=== PATIENT | female | born 1970 | race Caucasian/White ===

== ENCOUNTER 2017-04-18 14:01 | Outpatient (CLI) | payer MEDICARE, MEDICAID ==
[~2017-04-18 14:01] MED LIST: IBUP-24 PO
[2017-04-18 14:08] VITALS: BP 120/75
== END 2017-04-18 14:56 | disposition home or self-care (01) ==
LOC: ORTHO 14:01
PROVIDERS: ATTEND Nurse Practitioner Family
DX: S82.55XD Nondisplaced fracture of medial malleolus of left tibia, subsequent encounter for closed fracture with routine healing (principal); F17.210 Nicotine dependence, cigarettes, uncomplicated; M89.9 Disorder of bone, unspecified; Z88.5 Allergy status to narcotic agent; X58.XXXD Exposure to other specified factors, subsequent encounter
CPT/HCPCS: 73610

== ENCOUNTER → 2018-07-03 | Emergency (ER) | payer MEDICARE, MEDICAID ==
[~2018-07-03] VITALS: Ht 167.6 cm; Wt 78.0 kg
[~2018-07-03] MED LIST changes: +ALBU6.7H INH; +GUAI118S13 PO; +LEVO500T2 PO; +PRED20TA PO; +ipratropium/albuterol 3ml nebule NEB ONE; +levoFLOXACIN 750MG TABLET PO ONE; +methylPREDNISolone sod succ 125mg/2ml vial IV ONE; +normal saline 1000ML IV soln IVB ONE; +predniSONE 20 mg tablet PO STA
[2018-07-03 20:15] VITALS: BP 106/72
--- NOTE | 2018-07-03 23:39 | NUR ---
STARTED THE IV IN HER RIGHT WRIST AND SHE MADE ME TAKE IT OUT BECAUSE IT WAS TOO PAINFUL AND THEN SHE SAID "WHAT THE FUCK ARE YOU DOING TO ME." ' I SAID 'EXCUSE ME?' AND SHE THEN SAID SHE WAS SORRY. SARTHAK OAKES. HE WILL LOOK AT THE XRAY PREDNISONE 40 MG PO HOLD LABS
== END | disposition home or self-care (01) ==
LOC: ER 19:45
DX: J44.1 Chronic obstructive pulmonary disease with (acute) exacerbation (principal); J18.9 Pneumonia, unspecified organism; S60.811A Abrasion of right wrist, initial encounter; G89.29 Other chronic pain; M54.9 Dorsalgia, unspecified; F20.9 Schizophrenia, unspecified; F17.200 Nicotine dependence, unspecified, uncomplicated; Z88.6 Allergy status to analgesic agent; Z86.73 Personal history of transient ischemic attack (TIA), and cerebral infarction without residual deficits; W46.0XXA Contact with hypodermic needle, initial encounter; Y93.89 Activity, other specified; Y92.89 Other specified places as the place of occurrence of the external cause; Y99.8 Other external cause status
CPT/HCPCS: 71045; 94640; 94760; 99283; J7512

== ENCOUNTER 2019-03-28 12:05 | Emergency (ER) | payer MEDICARE, MEDICAID ==
[~2019-03-28] VITALS: Ht 170.2 cm; Wt 66.0 kg
[~2019-03-28 12:05] MED LIST changes: -ALBU6.7H INH; +ALBU6.7H9 INH; -GUAI118S13 PO; -LEVO500T2 PO; -PRED20TA PO; -ipratropium/albuterol 3ml nebule NEB ONE; -levoFLOXACIN 750MG TABLET PO ONE; -methylPREDNISolone sod succ 125mg/2ml vial IV ONE; -normal saline 1000ML IV soln IVB ONE; -predniSONE 20 mg tablet PO STA
[2019-03-28 12:09] VITALS: BP 133/81
[2019-03-28 13:05] LABS: CLARITY,URINE CLOUDY (Clear); COLOR,URINE YELLOW (Yellow); GLUCOSE, URINE NEGATIVE (Neg); KETONES,URINE NEGATIVE (Neg); LEUKOCYTE ESTERASE ,URINE LARGE (Neg); NITRITES, URINE NEGATIVE (Neg); OCCULT BLOOD,URINE TRACE-INTACT (Neg); PH,URINE 6.5 (4.8-8.0); PROTEIN,URINE NEGATIVE (Neg); UROBILINOGEN,URINE >=8.0 E.U/dL (0.2-1.0)
[2019-03-28 13:06] LABS: URINE HCG NEGATIVE (NEG)
[2019-03-28 13:08] LABS: UA COLLECTION TYPE CLN CATCH MIDSTREAM
[2019-03-28 13:12] LABS: SQUAMOUS EPITHELIAL CELL,UR MANY /LPF (FEW)
[2019-03-28 13:16] LABS: CAL OXALATE CRYSTALS 4+ /HPF (NEGATIVE)
[2019-03-28 13:17] LABS: TRICHOMONAS,URINE MANY /HPF (NEGATIVE)
[2019-03-28 13:18] LABS: BACTERIA,URINE FEW /HPF (Neg)
[2019-03-28 13:19] LABS: RBC,URINE 20-50 /HPF (0-2)
[2019-03-28 13:21] LABS: WBC,URINE 50-100 /HPF (0-4)
[2019-03-28 13:22] LABS: MUCUS STRANDS MODERATE /LPF (Neg)
--- NOTE | 2019-03-28 13:49 | NUR ---
assisted dr white for pelvic examination,pt has yellow greenish discharge from the vaginal examination .erthymea noted to area of pernieum.
[2019-03-28] MEDS ORDERED: CefTRIAXone 250MG IM Kit w/LIDOcaine IM ONE (14:05)
[2019-03-28] MEDS ORDERED: azithromycin 250mg tablet PO ONE (14:05)
[2019-03-28] MEDS ORDERED: METR-159 PO (14:06)
== END 2019-03-28 14:21 | disposition home or self-care (01) ==
LOC: ER 12:05
DX: A64 Unspecified sexually transmitted disease (principal); G89.29 Other chronic pain; F41.9 Anxiety disorder, unspecified; F32.9 Major depressive disorder, single episode, unspecified; F20.9 Schizophrenia, unspecified; F12.90 Cannabis use, unspecified, uncomplicated; Z86.73 Personal history of transient ischemic attack (TIA), and cerebral infarction without residual deficits; Z86.69 Personal history of other diseases of the nervous system and sense organs; Z98.890 Other specified postprocedural states; Z88.5 Allergy status to narcotic agent; Z79.899 Other long term (current) drug therapy
CPT/HCPCS: 36415; 81001; 81025; 87491; 87591; 96372; 99283; J0696